=== PATIENT | male | born 1990 | race Two or more races ===

== ENCOUNTER → 2024-05-10 | Outpatient (BNVA) | payer OTHER, SELFPAY | END | disposition home or self-care (01) | PROVIDERS: PCP Nurse Practitioner Primary Care; Referring Provider Nurse Practitioner Primary Care; Visit Provider Nurse Practitioner Primary Care | DX: Z76.89 Persons encountering health services in other specified circumstances (principal); E66.9 Obesity, unspecified; Z68.30 Body mass index [BMI] 30.0-30.9, adult; Z13.1 Encounter for screening for diabetes mellitus; Z71.3 Dietary counseling and surveillance; Z11.3 Encounter for screening for infections with a predominantly sexual mode of transmission | CPT/HCPCS: 99204 ==

== ENCOUNTER → 2024-05-21 | Outpatient (BNVA) | payer OTHER, SELFPAY | END | disposition home or self-care (01) | PROVIDERS: PCP Nurse Practitioner Family; Referring Provider Nurse Practitioner Family; Visit Provider Nurse Practitioner Family | DX: E78.5 Hyperlipidemia, unspecified (principal); Z00.01 Encounter for general adult medical examination with abnormal findings; Z71.3 Dietary counseling and surveillance; E66.9 Obesity, unspecified; Z68.30 Body mass index [BMI] 30.0-30.9, adult; E55.9 Vitamin D deficiency, unspecified; Z71.2 Person consulting for explanation of examination or test findings | CPT/HCPCS: 99213 ==

== ENCOUNTER 2024-10-03 17:14 | Emergency (ER) | payer OTHER, SELFPAY ==
--- NOTE | 2024-10-03 17:29 | XR_ITS ---
Examination: Hand, right 3 views Technique: Hand AP, oblique, lateral 3 views Date and time of exam: October 03, 2024 7037 hours INDICATIONS: Patient fell today with injury to the hand, hand pain FINDINGS: Acute comminuted fractures distal fifth metacarpal with dorsal angulation at the fracture site No foreign body IMPRESSION: Acute comminuted fractures distal fifth metacarpal
--- NOTE | 2024-10-03 17:29 | PD.EDRME ---
Rapid Medical Screening Exam E Arrival date/time: 10/03/24 17:14 34-year-old male with no known medical history presents to the emergency room with a chief complaint of tenderness and swelling to his right hand after tripping over a gas can and injuring it 2 hours ago. I have greeted and performed a focused initial assessment of this patient. A comprehensive ED assessment and evaluation of the patient, analysis of all test results, and completion of the medical decision making process will be conducted by additional ED providers. Chief Complaint: Hand/Wrist Problems Vital signs reviewed by provider: Yes
[2024-10-03 17:30] VITALS: BP 156/97; PULSE 105; RESP 18; TEMP 36.7; O2SAT 95
--- NOTE | 2024-10-03 18:20 | PD.EDADULT ---
ED General RME/HPI General Chief complaint: Hand/Wrist Problems Stated complaint: R) HAND INJURY; TRIPPED OVER GAS CAN Time Seen by Provider: 10/03/24 18:14 Arrival date/time: 10/03/24 17:14 CC: Right hand pain HPI patient tripped and fell striking his hand against a doorway causing immediate swelling and pain. Patient denies numbness or tingling in the digits. Patient is awake alert oriented last tetanus was less than 5 years ago. Localized pain is 3-4 and a 10 scale no OTC medicines taken no prior history of similar events. Patient did not lose consciousness rather tripped when he was starting to mow the lawn. Patient is awake alert oriented nontoxic-appearing not in any acute distress. RME / HPI RME / HPI narrative: 10/03/24 17:14 34-year-old male with no known medical history presents to the emergency room with a chief complaint of tenderness and swelling to his right hand after tripping over a gas can and injuring it 2 hours ago. I have greeted and performed a focused initial assessment of this patient. A comprehensive ED assessment and evaluation of the patient, analysis of all test results, and completion of the medical decision making process will be conducted by additional ED providers. Related Data Previous Rx's ?Medication ?Instructions ?Recorded meloxicam 7.5 mg tablet 7.5 mg PO QDAY #10 tabs 10/03/24 Allergies Allergy/AdvReac Type Severity Reaction Status Date / Time No Known Allergies Allergy Verified 10/03/24 17:17 Review of Systems Review of Systems Narrative Review of Systems: GEN: No fever, no chills, no weight loss EYES: No discharge, no visual changes, no pain HEENT: No ear pain, no congestion, no sore throat PULM: No shortness of breath, no cough, no congestion CV: No chest pain, no dyspnea on exertion, no palpitations GI: No nausea, no vomiting, no diarrhea, no pain, no constipation : No frequency, no urgency, no dysuria MUSC/SKEL: + joint pain, no back pain SKIN: No rash PSYCH: No hallucinations, no depression HEME/LYMPH: No easy bleeding or bruising tendencies NEURO: No weakness, no headache ED Exam Narrative Physical exam: [General: Obese not in any acute distress Head normocephalic HEENT: Within acceptable limits Neck is supple nontender Chest equal chest rise nontender to palpation Respiratory: Clear to auscultation no wheezes crackles or rubs CV: Rate rhythm is regular no murmurs rubs or clicks Abdomen is distended secondary to body habitus soft nontender no masses positive bowel sounds all 4 quadrants Back: No CVA tenderness no spinous process tenderness from cervical spine thoracic and lumbar spine Skin: Partial-thickness abrasion to the webbing between the 4th and 5th digit of the right hand. No for full-thickness lacerations. Otherwise skin is intact no petechiae rash induration ulceration or crepitus Extremities: Decreased range of motion of the right fifth digit secondary to pain. Significant edema in the dorsum of the hand. Moving all other extremities against resistance cap refill less than 2 seconds neurosensory intact Neuro: Awake alert oriented x3 Glascow coma 15 no focal deficits] Course Quality Measures none Orders Category Date Time Status Splint / Immobilizer STAT Care 10/03/24 18:19 Active XR hand comp RT min 3V Stat Exams 10/03/24 17:29 Taken Vital Signs Vital signs: Vital Signs Temperature 98.0 F 10/03/24 17:30 Pulse Rate 105 H 10/03/24 17:30 Respiratory Rate 18 10/03/24 17:30 Blood Pressure 156/97 H 10/03/24 17:30 Pulse Oximetry (%) 95 10/03/24 17:30 Oxygen Delivery Method Room Air 10/03/24 17:30 Discharge Plan Plan Patient Disposition: HOME (Self Care) Patient condition on transfer: Stable Prescriptions/Referrals Prescriptions/Med Rec: New meloxicam 7.5 mg tablet 7.5 mg PO QDAY Qty: 10 0RF Referrals: No Primary/Family,Physician [Primary Care Provider] - In 1 week Abelardo Welch MD [Physician] - In 1 week Problem List Clinical Impression: Closed fracture of fifth metacarpal bone Patient/Caregiver Discharge Instructions Other Activity Instructions:: Keep the hand in a splint for the next 7 days do not get it wet or take it off. Follow-up with the bone doctor listed above if there is worsening of symptoms return the emergency room for reevaluation take the pain medications for temporary pain relief. Education Materials: ED Closed Hand Fracture (Adult) Print Language: Kinyarwanda Stand Alone Forms: Beryl Award Info., Work/School Release, Patient Portal Info Letter PA/KARY Supervising Physician YARON Supervising Physician: Romie Khan ENP MDM Clinical Information Provided by: patient Medical Records reviewed [facility] Chronic Illness/Social Conditions which may negatively complicate care or outcome(s)-explain: None or not applicable EKG EKG not done Labs Labs: none Imaging Imaging interpretation: Interpreted by me Imaging Interpretation(s): Distal fifth metatarsal fracture with 30 degree angulation
== END 2024-10-03 18:44 | disposition home or self-care (01) ==
PROVIDERS: Emergency Provider Emergency Medicine
DX: S62.306A Unspecified fracture of fifth metacarpal bone, right hand, initial encounter for closed fracture (principal); W22.8XXA Striking against or struck by other objects, initial encounter
CPT/HCPCS: 29126; 73130; 99283; A4565